=== PATIENT | male | born 1975 | race Caucasian/White ===

== ENCOUNTER 2020-11-12 04:52 | Emergency (ER) | payer SELFPAY ==
[~2020-11-12] VITALS: Ht 172.7 cm; Wt 65.8 kg
[~2020-11-12 04:52] MED LIST: ACHD5005 PO
[2020-11-12] MEDS ORDERED: KETOROLAC 30 MG/ML VIAL IVP ONE (05:00)
--- NOTE | 2020-11-12 05:12 | ED GU-Male ---
General Stated Complaint: TESTICLE PAIN Source: patient (KETTY ROSENBAUM ) History of Present Illness Date Seen by Provider: Nov 12, 2020 Time Seen by Provider: 05:00 Initial Comments PT ARRIVES VIA POV FROM HOME WOKE UP WEDNESDAY MORNING WITH PAIN IN RIGHT TESTICLE WENT TO [facility] ON WEDNESDAY AND WAS TOLD TO COME HERE, BUT DID NOT SEEK CARE AGAIN UNTIL NOW PAIN IS NOW SEVERE, CONSTANT, AND WORSE WITH MOVEMENTS OR WALKING NO DIFFICULTY URINATING OR CHANGE IN COLOR OF URINE, HAS HAD SOME FREQUENCY NO PENILE DISCHARGE NO NAUSEA/VOMITING/DIARRHEA NO FEVER NO ABDOMINAL PAIN OR FLANK PAIN NO HEAVY LIFTING OR UNUSUAL ACTIVITY HAD INTERCOURSE ON WEDNESDAY NIGHT, WITHOUT DIFFICULTY OR PAIN HAS NOT TAKEN ANYTHING FOR PAIN AT ANY TIME NO HISTORY OF SIMILAR NO HISTORY OF STD'S OR OTHER PROBLEMS PCP: [facility] (KETTY ROSENBAUM DO) Allergies and Home Medications Allergies Coded Allergies: fentanyl (Verified Allergy, Severe, ITCHING, 11/12/20) Home Medications Doxycycline Hyclate 100 Mg Tablet, 100 MG PO BID Prescribed by: TRICIA RUIZ on 11/12/20 0806 Hydrocodone Bit/Acetaminophen 1 Each Tablet, 1-2 EACH PO Q6H PRN for PAIN Prescribed by: GE LOYA on 10/14/15 1803 Hydrocodone/Acetaminophen 1 Each Tablet, 1 TAB PO Q6H PRN for PAIN-MODERATE (5- 7) Prescribed by: TRICIA RUIZ on 11/12/20 0809 Patient Home Medication List Home Medication List Reviewed: Yes (TRICIA RUIZ) Review of Systems Review of Systems Constitutional: no symptoms reported Respiratory: no symptoms reported Cardiovascular: no symptoms reported Gastrointestinal: no symptoms reported Genitourinary: see HPI Musculoskeletal: no symptoms reported Skin: no symptoms reported Psychiatric/Neurological: No Symptoms Reported Endocrine: No Symptoms Reported (KETTY ROSENBAUM DO) Past Qyydllk-Riqcyo-Ghjoeo Hx Patient Social History Tobacco Use?: No Substance use?: No Alcohol Use?: No (KETTY ROSENBAUM DO) Past Medical History Surgery/Hospitalization HX: BMT;S RIGHT HAND SURGERY Surgeries: Yes Ear Surgery, Orthopedic Respiratory: No Cardiac: No Neurological: No Reproductive Disorders: No Sexually Transmitted Disease: No HIV/AIDS: No Genitourinary: No Gastrointestinal: No Musculoskeletal: No Endocrine: No HEENT: Yes (BMT'S) Chronic Ear Infection Cancer: No Psychosocial: Yes ADD/ADHD Integumentary: No Blood Disorders: No (KETTY ROSENBAUM DO) Family Medical History No Pertinent Family Hx (KETTY ROSENBAUM DO) Physical Exam Vital Signs Vital Signs - First Documented 11/12/20 04:55 Temp 36.0 Pulse 106 Resp 18 B/P (MAP) 120/93 (102) Pulse Ox 100 O2 Delivery Room Air (TRICIA RUIZ) Vital Signs Capillary Refill : (KETTY ROSENBAUM DO) Height, Weight, BMI Height: 5'8" Weight: 130lbs. oz. 58.788079mp; 19.76 BMI Method:Stated General Appearance: WD/WN, thin, other (ANXIOUS) Cardiovascular: regular rate, rhythm, no murmur Respiratory: normal breath sounds, no respiratory distress Gastrointestinal: non tender, soft Male: No erythema; testicular tenderness (MARKED RIGHT TESICULAR TENDERNESS, WI TH PROMINENCE OF EPIDIDYMIS. NO SWELLING OR DISCOLORATION OF TESICLE. TESTICLE IS MOBILE. ), other (PENIS WITH NORMAL APPEARANCE. NO DISCHARGE OR LESIONS) Back: no CVA tenderness Extremities: normal inspection Neurologic/Psychiatric: no motor/sensory deficits, alert, oriented x 3 Skin: normal color, warm/dry; No rash Comments NURSE IN ROOM MSWS (KETTY ROSENBAUM DO) Progress/Results/Core Measures Suspected Sepsis SIRS Temperature: Pulse: Respiratory Rate: Laboratory Tests 11/12/20 05:05: White Blood Count 7.8 Blood Pressure / Mean: Laboratory Tests 11/12/20 05:05: Creatinine 0.90, Platelet Count 295, Total Bilirubin 0.4 (KETTY ROSENBAUM DO) Results/Orders Lab Results Laboratory Tests Test 11/12/20 05:05 11/12/20 07:55 Range/Units White Blood Count 7.8 4.3-11.0 10^3/uL Red Blood Count 4.92 4.30-5.52 10^6/uL Hemoglobin 14.2 13.3-17.7 g/dL Hematocrit 42 40-54 % Mean Corpuscular Volume 86 80-99 fL Mean Corpuscular Hemoglobin 29 25-34 pg Mean Corpuscular Hemoglobin Concent 34 32-36 g/dL Red Cell Distribution Width 14.0 10.0-14.5 % Platelet Count 295 130-400 10^3/uL Mean Platelet Volume 10.6 9.0-12.2 fL Immature Granulocyte % (Auto) 0 % Neutrophils (%) (Auto) 71 42-75 % Lymphocytes (%) (Auto) 21 12-44 % Monocytes (%) (Auto) 6 0-12 % Eosinophils (%) (Auto) 1 0-10 % Basophils (%) (Auto) 0 0-10 % Neutrophils # (Auto) 5.6 1.8-7.8 10^3/uL Lymphocytes # (Auto) 1.6 1.0-4.0 10^3/uL Monocytes # (Auto) 0.5 0.0-1.0 10^3/uL Eosinophils # (Auto) 0.1 0.0-0.3 10^3/uL Basophils # (Auto) 0.0 0.0-0.1 10^3/uL Immature Granulocyte # (Auto) 0.0 0.0-0.1 10^3/uL Sodium Level 138 135-145 MMOL/L Potassium Level 3.6 3.6-5.0 MMOL/L Chloride Level 104 98-107 MMOL/L Carbon Dioxide Level 26 21-32 MMOL/L Anion Gap 8 5-14 MMOL/L Blood Urea Nitrogen 14 7-18 MG/DL Creatinine 0.90 0.60-1.30 MG/DL Estimat Glomerular Filtration Rate 92 BUN/Creatinine Ratio 16 Glucose Level 98 70-105 MG/DL Calcium Level 10.0 8.5-10.1 MG/DL Corrected Calcium 9.6 8.5-10.1 MG/DL Total Bilirubin 0.4 0.1-1.0 MG/DL Aspartate Amino Transf (AST/SGOT) 28 5-34 U/L Alanine Aminotransferase (ALT/SGPT) 32 0-55 U/L Alkaline Phosphatase 105 40-136 U/L Total Protein 7.9 6.4-8.2 GM/DL Albumin 4.5 3.2-4.5 GM/DL (TRICIA RUIZ) My Orders Orders - TRICIA RUIZ Fentanyl Inj (Sublimaze Injection) (11/12/20 07:45) Syphilis Antibody Screen (11/12/20 07:53) Ceftriaxone (Rocephin) (11/12/20 08:00) Azithromycin Tablet (Zithromax Tablet) (11/12/20 08:00) (TRICIA RUIZ) Medications Given in ED Current Medications Medications Dose Ordered Sig/Ben Route Start Time Stop Time Status Last Admin Dose Admin Ketorolac Tromethamine 30 mg ONCE ONCE IVP 11/12/20 05:00 11/12/20 05:01 DC 11/12/20 05:09 30 MG Lactated Ringer's 1,000 ml @ 0 mls/hr Q0M ONCE IV 11/12/20 06:15 11/12/20 06:16 DC 11/12/20 06:25 0 MLS/HR (TRICIA RUIZ) Vital Signs/I&O 11/12/20 04:55 Temp 36.0 Pulse 106 Resp 18 B/P (MAP) 120/93 (102) Pulse Ox 100 O2 Delivery Room Air (TRICIA RUIZ) Vital Signs/I&O Capillary Refill : (KETTY ROSENBAUM DO) Progress Note : Progress Note CARE TURNED OVER TO DR. RUIZ AT SHIFT CHANGE, ULTRASOUND AND UA PENDING (KETTY ROSENBAUM DO) Progress Note : Time: 07:49 Progress Note Assumed care of the patient at shift change. Ultrasound demonstrates inflammatory changes to the testicle as well as a little bit the epididymitis. Suspect an orchitis as a primary infection source. No evidence of impaired blood flow. Patient has not been able to produce a urine yet despite IV fluids. He has declined fentanyl for pain stating it makes him itch. He says he is okay at this time. Plan to put him on broad-spectrum antibiotics Rocephin and azithromycin followed by doxycycline for 10 days. (TRICIA RUIZ) Diagnostic Imaging Diagonstic Imaging: Ultrasound Plain Films/CT/US/NM/MRI: other (Scrotum) Comments No impaired blood flow. No evidence of torsion or mass. Inflammatory changes of the testicle and to a lesser extent epididymitis. NAME: STEPHANI PICKENS [facility] REC#: [id number] PT STATUS: REG ER : 1975 PHYSICIAN: KETTY ROSENBAUM DO ADMIT DATE: 11/12/20/ER Draft Date of Exam:11/12/20 US SCROTUM (Testicle) [id number] INDICATION: Swollen and slightly red right scrotal sac x2 days. TECHNIQUE: Real-time grayscale sonographic imaging and color vascular evaluation of the scrotum. CORRELATION STUDY: 07/02/2011 FINDINGS: RIGHT TESTICLE: 3.8 x 2.4 x 2.9 cm. LEFT TESTICLE: 3.7 x 2.4 x 2.7 cm. Normal echotexture throughout both testicles without definitive mass. There is however question slight increased vascularity through the right testicle compared to the left side. Also appears to be perhaps slight increased vascularity around the right epididymis. The epididymis itself however is not abnormally enlarged. Small bilateral hydroceles. IMPRESSION: 1. Imaging findings suggest a right-sided epididymal orchitis. Consideration for follow-up imaging would be recommended after appropriate antibiotic treatment. 2. Small bilateral hydroceles. Dictated on workstation # [id number] Dict: 11/12/20 0755 Trans: 11/12/20 0801 JACQUES [id number] Interpreted by: NOREEN VO DO Electronically signed by: Reviewed: Reviewed by Me (TRICIA RUIZ) Departure Impression Primary Impression: Orchitis and epididymitis Disposition: 01 HOME, SELF-CARE Condition: Stable Departure-Patient Inst. Decision time for Depature: 07:59 (TRICIA RUIZ) Referrals: NO,LOCAL PHYSICIAN (PCP) Primary Care Physician LINDA COREA MD Patient Instructions: Epididymitis (DC) Add. Discharge Instructions: Drink plenty of fluids. Warm moist heat may be helpful for pain. Tylenol 1000 mg every 8 hours necessary for pain. Ibuprofen 800 mg or 8 hours necessary for pain. Hydrocodone 1 tablet every 6 hours necessary for severe breakthrough pain. Will cause constipation and drowsiness. Do not mix with alcohol. Use laxative such as MiraLAX or Colace to stay regular. Doxycycline is an antibiotic to help treat your infection. Take 1 tablet twice a day for the next 10 days starting tonight. Take it with food. Follow-up with the urologist, Dr. Corea if you are having persistent symptoms despite antibiotics or other worrisome concerns. Scripts Doxycycline Hyclate (Doxycycline Hyclate) 100 Mg Tablet 100 MG PO BID, #20 TAB 0 Refills Prov: TRICIA RUIZ 11/12/20 Hydrocodone/Acetaminophen (Hydrocodone-Acetamin 5-325 mg) 1 Each Tablet 1 TAB PO Q6H PRN for PAIN-MODERATE (5-7), #10 TAB 0 Refills Prov: TRICIA RUIZ 11/12/20 Work/School Note: Work Release Form Date Seen in the Emergency Department: Nov 12, 2020 Return to Work: Nov 14, 2020 Restrictions: No Restrictions Copy Copies To 1: LINDA COREA MD, LISA K DO Nov 12, 2020 05:12 TRICIA RUIZ Nov 12, 2020 07:52
[2020-11-12 05:13] LABS: BASOPHILS % (AUTO) 0 % (0-10); EOSINOPHILS # (AUTO) 0.1 10^3/uL (0.0-0.3); EOSINOPHILS % (AUTO) 1 % (0-10); HEMATOCRIT 42 % (40-54); HEMOGLOBIN 14.2 g/dL (13.3-17.7); LYMPHOCYTES # (AUTO) 1.6 10^3/uL (1.0-4.0); LYMPHOCYTES % (AUTO) 21 % (12-44); MEAN CORPUSCULAR HEMOGLOBIN 29 pg (25-34); MEAN CORPUSCULAR HGB CONC 34 g/dL (32-36); MEAN CORPUSCULAR VOLUME 86 fL (80-99); MEAN PLATELET VOLUME 10.6 fL (9.0-12.2); MONOCYTES # (AUTO) 0.5 10^3/uL (0.0-1.0); MONOCYTES % (AUTO) 6 % (0-12); NEUTROPHILS # (AUTO) 5.6 10^3/uL (1.8-7.8); NEUTROPHILS % (AUTO) 71 % (42-75); PLATELET COUNT 295 10^3/uL (130-400); WHITE BLOOD COUNT 7.8 10^3/uL (4.3-11.0)
[2020-11-12 05:32] LABS: ALBUMIN 4.5 GM/DL (3.2-4.5); POTASSIUM 3.6 MMOL/L (3.6-5.0)
[2020-11-12 05:35] LABS: TOTAL PROTEIN 7.9 GM/DL (6.4-8.2)
[2020-11-12 05:36] LABS: BILIRUBIN,TOTAL 0.4 MG/DL (0.1-1.0)
[2020-11-12 05:38] LABS: CREATININE SERUM 0.9 MG/DL (0.60-1.30)
[2020-11-12] MEDS ORDERED: LACTATED RINGERS 1,000 ML IV ONE (06:15)
[2020-11-12] MEDS: fentaNYL INJ 100 MCG/2 ML AMP IVP ONE ×2 (07:39→07:43)
[2020-11-12] MEDS ORDERED: AZITHROMYCIN 250 MG TAB (ZITHROMAX) PO ONE (08:00)
[2020-11-12] MEDS ORDERED: cefTRIAXone 1,000 MG in WATER (STERILE) FOR INJECTION 10 ML IV ONE (08:00)
[2020-11-12 08:01] LABS: BILIRUBIN,URINE NEGATIVE (NEGATIVE); CLARITY,URINE CLEAR; COLOR,URINE DARK YELLOW; GLUCOSE, URINE (UA) NEGATIVE (NEGATIVE); KETONES,URINE NEGATIVE (NEGATIVE); LEUKOCYTE ESTERASE ,URINE NEGATIVE (NEGATIVE); NITRITE,URINE NEGATIVE (NEGATIVE); PROTEIN,URINE NEGATIVE (NEGATIVE)
--- NOTE | 2020-11-12 08:01 | Diagnostic Imaging Report ---
INDICATION: Swollen and slightly red right scrotal sac x2 days. TECHNIQUE: Real-time grayscale sonographic imaging and color vascular evaluation of the scrotum. CORRELATION STUDY: 07/02/2011 FINDINGS: RIGHT TESTICLE: 3.8 x 2.4 x 2.9 cm. LEFT TESTICLE: 3.7 x 2.4 x 2.7 cm. Normal echotexture throughout both testicles without definitive mass. There is however question slight increased vascularity through the right testicle compared to the left side. Also appears to be perhaps slight increased vascularity around the right epididymis. The epididymis itself however is not abnormally enlarged. Small bilateral hydroceles. IMPRESSION: 1. Imaging findings suggest a right-sided epididymal orchitis. Consideration for follow-up imaging would be recommended after appropriate antibiotic treatment. 2. Small bilateral hydroceles. Dictated by: Dictated on workstation # [id number]
[2020-11-12] MEDS ORDERED: DOXY100T2 PO (08:06)
[2020-11-12] MEDS ORDERED: ACHD5005 PO (08:06)
[2020-11-12 08:16] LABS: AMORPHOUS SEDIMENT,UR RARE AMOR PHOSPHATE /LPF; BACTERIA,URINE NEGATIVE /HPF; SQUAMOUS EPITHELIAL CELL,UR RARE /HPF; URINE OTHER RARE SPERM /HPF; WBC,URINE RARE /HPF
[2020-11-12] MEDS ORDERED: WATER (STERILE) FOR INJECTION 10 ML ONE (08:16)
[2020-11-12 08:29] VITALS: BP 119/86
== END 2020-11-12 08:29 | disposition home or self-care (01) ==
LOC: EDUNIT# 04:52 → ER 04:55
DX: N45.2 Orchitis (principal); N45.1 Epididymitis
CPT/HCPCS: 36415; 76870; 80053; 81000; 85025; 86780; 87491; 87591

== ENCOUNTER 2021-10-04 14:49 | Emergency (ER) | payer SELFPAY ==
[~2021-10-04] VITALS: Ht 172.7 cm; Wt 66.0 kg
[~2021-10-04 14:49] MED LIST changes: +DOXY100T2 PO
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
[2021-10-04] MEDS: morphine INJ 10 MG/ML 1ML (SYR OR VIAL) IVP ONE ×2 (15:53→16:31)
[2021-10-04 15:54] LABS: BASOPHILS % (AUTO) 0 % (0-10); EOSINOPHILS # (AUTO) 0.1 10^3/uL (0.0-0.3); EOSINOPHILS % (AUTO) 2 % (0-10); HEMATOCRIT 40 % (40-54); HEMOGLOBIN 13.8 g/dL (13.3-17.7); LYMPHOCYTES # (AUTO) 1.1 10^3/uL (1.0-4.0); LYMPHOCYTES % (AUTO) 13 % (12-44); MEAN CORPUSCULAR HEMOGLOBIN 29 pg (25-34); MEAN CORPUSCULAR HGB CONC 35 g/dL (32-36); MEAN CORPUSCULAR VOLUME 84 fL (80-99); MEAN PLATELET VOLUME 9.8 fL (9.0-12.2); MONOCYTES # (AUTO) 0.8 10^3/uL (0.0-1.0); MONOCYTES % (AUTO) 10 % (0-12); NEUTROPHILS # (AUTO) 6.2 10^3/uL (1.8-7.8); NEUTROPHILS % (AUTO) 75 % (42-75); PLATELET COUNT 251 10^3/uL (130-400); WHITE BLOOD COUNT 8.3 10^3/uL (4.3-11.0)
[2021-10-04] MEDS ORDERED: HOLD METFORMIN - RECEIVED CONTRAST 20 ML VIAL IV SCH (16:00)
[2021-10-04] MEDS ORDERED: NS 100 ML (IVPB) BAG IV ONE (16:00)
[2021-10-04] MEDS ORDERED: IOHEXOL 350 MG/ML 100 ML (OMNIPAQUE 350) VIAL IV ONE (16:00)
[2021-10-04 16:08] LABS: ALBUMIN 4.4 GM/DL (3.2-4.5)
[2021-10-04 16:09] LABS: POTASSIUM 3.8 MMOL/L (3.6-5.0)
[2021-10-04 16:10] LABS: CALCIUM 9.5 MG/DL (8.5-10.1)
[2021-10-04 16:11] LABS: TOTAL PROTEIN 6.9 GM/DL (6.4-8.2)
[2021-10-04 16:13] LABS: BILIRUBIN,TOTAL 1.3 MG/DL (0.1-1.0)
[2021-10-04 16:15] LABS: CREATININE SERUM 1.04 MG/DL (0.60-1.30)
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
[2021-10-04] MEDS ORDERED: NAPR-915 PO (16:30)
--- NOTE | 2021-10-04 16:44 | Diagnostic Imaging Report ---
INDICATION: Bilateral leg pain. COMPARISON: 10/14/2015. TECHNIQUE: Eight radiographs of the bilateral tibia and fibula dated October 04, 2021. FINDINGS: Mixed lucent and sclerotic lesion is again noted within the left distal tibial metadiaphyseal region. This was present on prior imaging from 2015 and not significantly changed. No acute fracture or dislocation. No destructive osseous process. No suspicious radiopaque foreign body. IMPRESSION: 1. No acute osseous abnormality. 2. Stable mixed lucent and sclerotic appearance of the distal left tibia, not significantly changed since the prior examination in 2015. 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 Dictated by: Dictated on workstation # [id number]
[2021-10-04 16:56] VITALS: BP 119/73
== END 2021-10-04 16:58 | disposition home or self-care (01) ==
LOC: EDUNIT# 14:49 → ER 14:51
DX: S80.12XA Contusion of left lower leg, initial encounter (principal); S80.11XA Contusion of right lower leg, initial encounter; S00.81XA Abrasion of other part of head, initial encounter; M54.9 Dorsalgia, unspecified; Y08.02XA Assault by strike by baseball bat, initial encounter
CPT/HCPCS: 36415; 70450; 70486; 74177; 80053; 85025

== ENCOUNTER 2022-06-27 03:49 | Emergency (ER) | payer SELFPAY ==
[~2022-06-27 03:49] MED LIST changes: +NAPR-915 PO
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
[2022-06-27 04:59] VITALS: BP 128/95
[2022-06-27] MEDS ORDERED: AMOX1TAB12 PO (20:07)
== END 2022-06-27 04:59 | disposition home or self-care (01) ==
LOC: EDUNIT# 03:49 → ER 03:54
DX: S01.511A Laceration without foreign body of lip, initial encounter (principal); Z28.310 Unvaccinated for COVID-19; Y04.8XXA Assault by other bodily force, initial encounter
CPT/HCPCS: 40654

== ENCOUNTER 2022-06-27 19:47 | Emergency (ER) | payer SELFPAY ==
[~2022-06-27] VITALS: Ht 172.7 cm; Wt 57.0 kg
[2022-06-27 19:53] VITALS: BP 136/88
[2022-06-27] MEDS ORDERED: AUGMENTIN 875 MG TAB (AMOXICILLIN/CLAVULANATE) PO STA (20:07)
[2022-06-27] MEDS ORDERED: AMOX1TAB12 PO (20:07)
--- NOTE | 2022-06-27 20:07 | ED Integumentary General ---
General Chief Complaint: Skin/Wound Problems Stated Complaint: WOUND CHECK - LIP Nursing Triage Note: pt states he thinks one of his sutures broke while doin laundry. Source: patient Exam Limitations: no limitations (ALBERTO LAMAR) History of Present Illness Date Seen by Provider: Jun 27, 2022 Time Seen by Provider: 20:05 Initial Comments Patient is a 47-year-old male who presents ED for evaluation of swelling of his right lip. Patient states about an hour ago he was doing laundry felt a pop in his upper lip and noted some swelling and bleeding from the surgical site. Reports some pain and discomfort to this area. Denies of any facial swelling or redness. States his right upper lip is swollen since he felt the pop. Not currently on antibiotics. Denies taking thing for pain. Denies fever, dental pain, headache, dizziness (ALBERTO LAMAR) Allergies and Home Medications Allergies Coded Allergies: fentanyl (Verified Allergy, Severe, ITCHING, 10/04/21) Patient Home Medication List Home Medication List Reviewed: Yes (ALBERTO LAMAR) Amoxicillin/Potassium Clav (Amox Tr-K Clv 875-125 mg Tab) 875 Mg-125 Mg Tablet, 1 EACH PO BID Prescribed by: ALLISON CLARKE on 06/27/222006 Doxycycline Hyclate (Doxycycline Hyclate) 100 Mg Tablet, 100 MG PO BID Prescribed by: TRICIA RUIZ on 11/12/20 0806 Hydrocodone Bit/Acetaminophen (Lortab 5 Mg Tablet) 1 Each Tablet, 1-2 EACH PO Q6H PRN for PAIN Prescribed by: GE LOYA on 10/14/15 180 Hydrocodone/Acetaminophen (Hydrocodone-Acetamin 5-325 mg) 1 Each Tablet, 1 TAB PO Q6H PRN for PAIN-MODERATE (5-7) Prescribed by: TRICIA RUIZ on 11/12/20 0809 Naproxen (Naproxen) 500 Mg Tablet, 500 MG PO BID Prescribed by: ALLISON CLARKE on 10/04/21 1630 Review of Systems Review of Systems Constitutional: No chills, No diaphoresis, No malaise, No weakness EENTM: other (right upper lip swelling, no surrounding redness or swelling. No fluctuant mass); No ear pain, No blurred vision, No double vision, No hoarseness, No mouth pain, No mouth swelling Respiratory: No short of breath, No wheezing Cardiovascular: No chest pain Gastrointestinal: No abdominal pain, No diarrhea, No nausea, No vomiting Genitourinary: No decreased output, No discharge Musculoskeletal: No back pain, No joint pain Skin: other (right upper lip swelling) (ALBERTO LAMAR) All Other Systems Reviewed Negative Unless Noted: Yes (ALBERTO LAMAR) Past Fqcixvk-Kriaya-Umvugu Hx Patient Social History Tobacco Use?: Yes Substance use?: No Alcohol Use?: Yes Pt feels they are or have been: No (ALBERTO LAMAR) Immunizations Up To Date First/Initial COVID19 Vaccinat: denies Second COVID19 Vaccination Marshall: 2021 Third COVID19 Vaccination Date: 2020 (ALBERTO LAMAR) Past Medical History Surgery/Hospitalization HX: BMT;S RIGHT HAND SURGERY Surgeries: Yes Ear Surgery, Orthopedic Respiratory: No Cardiac: No Neurological: No Reproductive Disorders: No Sexually Transmitted Disease: No HIV/AIDS: No Genitourinary: No Gastrointestinal: No Musculoskeletal: No Endocrine: No HEENT: Yes (BMT'S) Chronic Ear Infection Cancer: No Psychosocial: Yes ADD/ADHD Integumentary: No Blood Disorders: No (ALBERTO LAMAR) Family Medical History No Pertinent Family Hx (ALBERTO LAMAR) Physical Exam Vital Signs Vital Signs - First Documented 06/27/22 19:53 Temp 36.5 Pulse 111 Resp 16 B/P (MAP) 136/88 (104) Pulse Ox 98 O2 Delivery Room Air (MONTANA VELASQUEZ MD) Vital Signs Capillary Refill : Less Than 3 Seconds (ALBERTO LAMAR) General Appearance: WD/WN, no apparent distress HEENT: PERRL/EOMI, normal ENT inspection, TMs normal, pharynx normal, other (Swelling noted to right upper lip. No purulent drainage. Tenderness to palpate.) Neck: non-tender, full range of motion Cardiovascular: regular rate, rhythm, no edema, no gallop, no JVD Respiratory: chest non-tender, lungs clear, normal breath sounds, no respiratory distress, no accessory muscle use Gastrointestinal: normal bowel sounds, non tender, soft, no organomegaly Back: normal inspection, no CVA tenderness, no vertebral tenderness Extremities: normal range of motion, non-tender, normal inspection Skin: other (Swelling underneath the right upper lip. Tenderness to palpate. No surrounding redness or swelling. No active drainage) (ALBERTO LAMAR) Progress/Results/Core Measures Results/Orders Vital Signs/I&O 06/27/22 19:53 Temp 36.5 Pulse 111 Resp 16 B/P (MAP) 136/88 (104) Pulse Ox 98 O2 Delivery Room Air (MONTANA VELASQUEZ MD) Blood Pressure Mean: 104 Departure Communication (PCP) Reviewed previous ER visits, H&P. Patient had sutures placed to his right upper lip yesterday secondary to an injury. Right before arrival he was doing laundry states he felt a pop in his upper lip noted swelling with some bleeding from the laceration repair site. Swelling appears to be underneath the lip. Is tender to palpate. No facial swelling or redness. No fluctuant mass. Does not appear infectious however concerned that a internal suture did rupture. Likely has a hematoma in this area that ruptured the suture. Discussed we will discharge with Augmentin prophylactically. Discussed ice to help with the swelling. If swelling increases, fever needs further evaluation and potential drainage as th is could get infected. ENT outpatient follow-up for further evaluation. (ALBERTO LAMAR) Impression Primary Impression: Lip swelling Disposition: 01 HOME, SELF-CARE Condition: Stable Departure-Patient Inst. Decision time for Depature: 20:07 (ALBERTO LAMAR) Referrals: SONAL HUYNH MD [facility] (PCP/Family) Primary Care Physician Patient Instructions: Cellulitis (Skin Infection), Adult (DC) Scripts Amoxicillin/Potassium Clav (Amox Tr-K Clv 875-125 mg Tab) 875 Mg-125 Mg Tablet 1 EACH PO BID for 7 Days, #14 TAB Prov: ALBERTO LAMAR 06/27/22 ATTENDING PHYSICIAN NOTE: I was physically present as attending physician in the emergency department during the care of this patient, but I was not directly involved in the decision making or delivery of care for this patient. (MONTANA VELASQUEZ MD) ALBERTO LAMAR Jun 27, 2022 20:07 MONTANA VELASQUEZ MD Jun 27, 2022 20:43
== END 2022-06-27 20:17 | disposition home or self-care (01) ==
LOC: EDUNIT# 19:47 → ER 19:48
DX: R22.0 Localized swelling, mass and lump, head (principal); Z28.310 Unvaccinated for COVID-19
CPT/HCPCS: 99283